=== PATIENT | female | born 1945 | race Caucasian/White ===

== ENCOUNTER 2016-12-07 08:52 | Emergency (ER) | payer OTHER ==
[2016-12-07 08:57] VITALS: BP 135/81; PULSE 70; TEMP 97.7; BMI 37.5
--- NOTE | 2016-12-07 09:36 | PDOC ---
History of Present Illness - General Chief Complaint: Ear Problem Stated Complaint: EAR PROBLEM Time Seen by Provider: 12/07/16 09:14 History Source: Patient Exam Limitations: No Limitations - History of Present Illness Initial Comments: 12/07/16 8:35 Emergency department for evaluation of left ear pain. has had that same pain in the past and was given some acetic acid drops from the pharmacist for ear pain. Patient has been using for one week with no recent relief of pain. has some mild buzzing, but denies drainage. Denies fever, runny nose or congestion. Denies trauma or any other ear injury. His dizziness, any visual changes, no swelling to face or ear. Patient has seen the ear nose and throat doctors Timing/Duration: unsure Severity: moderate, severe Modifying Factors: improves with: other Associated Symptoms: reports: denies symptoms. denies: cough, fever/chills, headaches, malaise Past History - Travel Traveled outside of the country in the last 30 days: No Close contact w/someone who was outside of country & ill: No - Past Medical History Allergies/Adverse Reactions: Allergies Allergy/AdvReac Type Severity Reaction Status Date / Time No Known Allergies Allergy Verified 12/07/16 08:58 Home Medications: Ambulatory Orders Aspirin [Machelle Chewable Aspirin] 81 mg PO DAILY 04/03/15 Atorvastatin Calcium 40 mg PO DAILY 04/03/15 Digoxin [Lanoxin -] 0.125 mg PO DAILY 04/03/15 Docusate Sodium 100 mg PO DAILY 04/03/15 Duloxetine HCl 60 mg PO DAILY 04/03/15 Gabapentin [Neurontin -] 300 mg PO Q8H 04/03/15 Ipratropium [place] [Atrovent Hfa] 12.9 gm IH QID PRN 04/03/15 Metoprolol Succinate [Toprol XL -] 200 mg PO DAILY 04/03/15 Sertraline HCl 50 mg PO DAILY 04/03/15 Torsemide 20 mg PO DAILY 04/03/15 Zolpidem Tartrate [Ambien] 5 mg PO HS PRN 04/03/15 Lisinopril [Prinivil] 5 mg PO DAILY #30 tablet 04/09/15 Magnesium Oxide [Mag-Ox -] 400 mg PO DAILY #30 tablet 04/09/15 Warfarin Na [Coumadin -] 5 mg PO DAILY@1800 #30 tablet 04/09/15 Anemia: No Asthma: No Cancer: No Cardiac Disorders: Yes (CAD; ATRIAL FIBRILLATION; dialted cardiomyopathy,) CVA: No COPD: No CHF: Yes Dementia: No Diabetes: No GI Disorders: Yes (HIATAL HERNIA) Disorders: No HTN: Yes Hypercholesterolemia: Yes Liver Disease: No Seizures: No Thyroid Disease: No - Surgical History Abdominal Surgery: Yes (HERNIA REPAIR) Appendectomy: No Cardiac Surgery: No (PACEMAKER) Cholecystectomy: No Lung Surgery: No Neurologic Surgery: No Orthopedic Surgery: Yes (Both ankle sx; right shoulder;vein stripping right, R. Knee 2013) - Psycho/Social/Smoking Cessation Hx Anxiety: No Suicidal Ideation: No Smoking Status: No Smoking History: Never smoked Have you smoked in the past 12 months: No Number of Cigarettes Smoked Daily: 0 Information on smoking cessation initiated: No Hx Alcohol Use: No Drug/Substance Use Hx: No Substance Use Type: None Hx Substance Use Treatment: No Review of Systems - Review of Systems Able to Perform ROS?: Yes Is the patient limited Hungarian proficient: Yes Constitutional: Yes: Symptoms Reported, See HPI, Malaise. No: Chills, Fever, Loss of Appetite HEENTM: Yes: Symptoms Reported, See HPI, Ear Pain (with buzzing. ) Respiratory: Yes: See HPI. No: Symptoms reported, Cough Neurological: Yes: See HPI. No: Symptoms reported, Headache All Other Systems: Reviewed and Negative *Physical Exam - Vital Signs Last Vital Signs Temp Pulse Resp BP Pulse Ox 97.7 F 70 18 135/81 98 12/07/16 08:53 12/07/16 08:53 12/07/16 08:53 12/07/16 08:53 12/07/16 08:53 - Physical Exam General Appearance: Yes: Nourished, Appropriately Dressed, Apparent Distress, Mild Distress HEENT: positive: J CARLOS, Pharynx Normal. negative: Normal ENT Inspection, TMs Normal (left very cloudy and unable to visualize landmarks, canal is not red, swollen, and without drainage) Neck: positive: Supple. negative: Lymphadenopathy (R), Lymphadenopathy (L) Respiratory/Chest: positive: Lungs Clear, Normal Breath Sounds Extremity: positive: Normal Capillary Refill Integumentary: positive: Normal Color, Dry, Warm Neurologic: positive: elevator service mechanic II-XII NML intact, Fully Oriented, Alert, Normal Mood/ Affect, Normal Response, Motor Strength 07/31 Medical Decision Making - Medical Decision Making 12/07/16 16:37 Left ear pain, discussed case with Dr. Thakur's office who stated patient has been there in the past. They are able to see patient this morning at 11 AM and will send for further evaluation *DC/Admit/Observation/Transfer Diagnosis at time of Disposition: Ear pain, left - Discharge Dispostion Disposition: HOME Condition at time of disposition: Stable Admit: No - Referrals Referrals: Hussein Lim [Primary Care Provider] - Julio Thakur MD [Staff Physician] - - Patient Instructions Printed Discharge Instructions: DI for Ear Pain-Adult Additional Instructions: Rest, [facility] Office for appointment at 11 AM
== END 2016-12-07 09:51 | disposition home or self-care (01) ==
LOC: JERFT 08:52
DX: H92.02 Otalgia, left ear (principal); I48.91 Unspecified atrial fibrillation; Z79.01 Long term (current) use of anticoagulants; I25.10 Atherosclerotic heart disease of native coronary artery without angina pectoris; I11.0 Hypertensive heart disease with heart failure; Z95.0 Presence of cardiac pacemaker
CPT/HCPCS: 99281-25

== ENCOUNTER 2018-10-05 13:33 | Inpatient (IN) | payer OTHER ==
--- NOTE | 2018-10-05 14:25 | PDOC ---
History of Present Illness - General Chief Complaint: Chest Pain Stated Complaint: SOB - History of Present Illness Initial Comments: The pt is a 73F w/ a history of CAD, s/p pacemaker, HTN, HLD, HF, syncope, 7 months of chest pain and ALDRICH presenting for acute on chronic chest pain and SOB. CP is substernal, sharp, non-radiating, pleuritic, non-positional, exertional, and alleviated by rest. She endorses 5 days of subjective fevers that she has not taken anything particular for. She denies sick contacts. She also reports 20 minutes of diffuse, cramping, abdominal pain that is intermittent, improved by standing and abd massage, and not associated with anything else she can identify. She also reports that she feels anxious today but cannot identify any particular stressors, change, or triggers today or this week. Per the family member, they were living in a basement but displaced several days ago and are now living in a hotel and he states that since that time she has been complaining of similar symptoms. Pt endorses long standing dysuria w/o previous 'negative w/u' She denies vision changes, diarrhea, blood in her stool, acute changes in sensation, leg swelling, falls, or trauma No changes in medications 10/05/18 14:53 Past History - Past Medical History Allergies/Adverse Reactions: Allergies Allergy/AdvReac Type Severity Reaction Status Date / Time No Known Allergies Allergy Verified 01/29/17 21:46 Home Medications: Ambulatory Orders Aspirin [Machelle Chewable Aspirin] 81 mg PO DAILY 04/03/15 Atorvastatin Calcium 40 mg PO DAILY 04/03/15 Digoxin [Lanoxin -] 0.125 mg PO DAILY 04/03/15 Docusate Sodium 100 mg PO DAILY 04/03/15 Duloxetine HCl 60 mg PO DAILY 04/03/15 Gabapentin [Neurontin -] 300 mg PO Q8H 04/03/15 Ipratropium [place] [Atrovent Hfa] 12.9 gm IH QID PRN 04/03/15 Metoprolol Succinate [Toprol XL -] 200 mg PO DAILY 04/03/15 Sertraline HCl 50 mg PO DAILY 04/03/15 Torsemide 20 mg PO DAILY 04/03/15 Zolpidem Tartrate [Ambien] 5 mg PO HS PRN 04/03/15 Lisinopril [Prinivil] 5 mg PO DAILY #30 tablet 04/09/15 Magnesium Oxide [Mag-Ox -] 400 mg PO DAILY #30 tablet 04/09/15 Warfarin Na [Coumadin -] 5 mg PO DAILY@1800 #30 tablet 04/09/15 Anemia: No Asthma: No Cancer: No Cardiac Disorders: Yes (CAD; ATRIAL FIBRILLATION; dialted cardiomyopathy,) CVA: No COPD: No CHF: Yes Dementia: No Diabetes: No GI Disorders: Yes (HIATAL HERNIA) Disorders: No HTN: Yes Hypercholesterolemia: Yes Liver Disease: No Seizures: No Thyroid Disease: No - Surgical History Abdominal Surgery: Yes (HERNIA REPAIR) Appendectomy: No Cardiac Surgery: No (PACEMAKER) Cholecystectomy: No Lung Surgery: No Neurologic Surgery: No Orthopedic Surgery: Yes (Both ankle sx; right shoulder;vein stripping right, R. Knee 2013) - Suicide/Smoking/Psychosocial Hx Smoking Status: No Smoking History: Unknown if ever smoked Have you smoked in the past 12 months: No Number of Cigarettes Smoked Daily: 0 Hx Alcohol Use: No Drug/Substance Use Hx: No Substance Use Type: None Hx Substance Use Treatment: No Review of Systems - Review of Systems Able to Perform ROS?: Yes Comments:: GENERAL/CONSTITUTIONAL: No chills HEAD, EYES, EARS, NOSE AND THROAT: No change in vision. No ear pain or discharge. No sore throat CARDIOVASCULAR: +CP and SOB RESPIRATORY: Denies cough, hemoptysis GASTROINTESTINAL: No diarrhea or constipation GENITOURINARY: +chronic dysuria MUSCULOSKELETAL: +chronic OA SKIN: No rash NEUROLOGIC: No vertigo, loss of consciousness, or change in strength/sensation ENDOCRINE: No increased thirst. No abnormal weight change ALLERGIC/IMMUNOLOGIC: No hives or skin allergy 10/05/18 14:25 *Physical Exam - Vital Signs Last Vital Signs Temp Pulse Resp BP Pulse Ox 97.7 F 70 24 H 125/84 100 10/05/18 14:07 10/05/18 14:07 10/05/18 14:10/05/18 14:10/05/18 14:07 - Physical Exam Comments: GENERAL: Awake, alert, and oriented to person/place/time, in no acute distress HEAD: No signs of trauma, normocephalic, atraumatic EYES: PERRLA, EOMI, sclera anicteric, conjunctiva clear ENT: Hearing grossly normal, nares patent, oropharynx clear without exudates. Moist mucosa LUNGS: No distress, speaks in full sentences, clear to auscultation bilaterally HEART: Regular rate and rhythm, normal S1 and S2, no murmurs appreciated, peripheral pulses normal and equal bilaterally ABDOMEN: Soft, protuberant, NTTP, normoactive bowel sounds. No guarding, no rebound EXTREMITIES: Normal inspection, Normal range of motion, no edema. No clubbing or cyanosis NEUROLOGICAL: Cranial nerves II through XII grossly intact. Normal speech, no focal sensorimotor deficits SKIN: Warm, Dry 10/05/18 14:25 ED Treatment Course - LABORATORY CBC & Chemistry Diagram: 10/05/18 15:06 10/05/18 15:06 Medical Decision Making - Medical Decision Making The pt is a 73F w/ a history of CAD, s/p pacemaker, HTN, HLD, HF, syncope, 7 months of chest pain and ALDRICH presenting for acute on chronic chest pain and SOB. Additionally she reports dysuria and frequency. Ddx: ACS, acute on CHF, UTI, metabolic abn ED Course Labs sent ECG CXR ECG w/ ventricular paced rhythm w/ no acute change from previous No leukocytosis No anemia Lytes unremarkable No HARDEEP LFTs unremarkable Trop I neg BNP mildly elevated 1478 -Will give Lasix 40mg IV once UA w/ evidence of UTI -Will give Ceftriaxone 1g IV once Plan for Tele obs for chest pain Pt signed out to [facility] Admitting *DC/Admit/Observation/Transfer Diagnosis at time of Disposition: ACS (acute coronary syndrome), Chronic systolic (congestive) heart failure Chest pain Qualifiers: Chest pain type: unspecified Qualified Code(s): R07.9 - Chest pain, unspecified HTN (hypertension) Qualifiers: Hypertension type: unspecified Qualified Code(s): I10 - Essential (primary) hypertension CAD (coronary artery disease) Qualifiers: Coronary Disease-Associated Artery/Lesion type: unspecified vessel or lesion type [place] vs. transplanted heart: [place] heart Associated angina: angina presence unspecified Qualified Code(s): I25.10 - Atherosclerotic heart disease of [place] coronary artery without angina pectoris - Discharge Dispostion Condition at time of disposition: Good Decision to Admit order: Yes - Referrals - Patient Instructions - Post Discharge Activity
--- NOTE | 2018-10-05 14:50 | EKG ---
Test Reason : Blood Pressure : / mmHG Vent. Rate : 071 BPM Atrial Rate : 073 BPM P-R Int : 000 ms QRS Dur : 134 ms QT Int : 466 ms P-R-T Axes : 000 233 052 degrees QTc Int : 506 ms Ventricular-paced rhythm Biventricular pacemaker detected ABNORMAL ECG WHEN COMPARED WITH ECG OF 03-APR-2015 12:07, NO SIGNIFICANT CHANGE WAS FOUND Confirmed by SATR COYNE MD ([id number]) on 10/05/2018 2:49:40 PM Referred By: Confirmed By:STAR COYNE MD
[2018-10-05 15:28] LABS: BASO % 0.7 % (0-2.0); EOS % 0.7 % (0-4.5); HEMATOCRIT 35.1 % (32.4-45.2); HEMOGLOBIN 11.5 GM/dL (10.7-15.3); LYMPH % 19.8 % (8-40); MCH 28.6 pg (25.7-33.7); MCHC 32.9 g/dl (32.0-36.0); MEAN CELL VOLUME 87.1 fl (80-96); MEAN PLT VOLUME 7.2 fl (7.5-11.1); MONO % 4.8 % (3.8-10.2); RBC 4.03 M/mm3 (3.60-5.2); RDW 13.7 % (11.6-15.6); WHITE BLOOD COUNT 9.3 K/mm3 (4.0-10.0)
[2018-10-05 15:41] LABS: INR 1.39 (0.83-1.09); PROTHROMBIN TIME (PATIENT) 16.5 SEC (9.7-13.0)
[2018-10-05 15:43] LABS: ACTIVATED PTT 35.5 SECONDS (25.2-36.5); PLATELET COUNT 407 K/MM3 (134-434)
[2018-10-05 15:54] LABS: ALBUMIN 3.3 g/dl (3.4-5.0); ALK PHOS 131 U/L (45-117); ANION GAP 9 MMOL/L (8-16); BILIRUBIN,TOTAL 0.4 mg/dL (0.2-1); BLOOD UREA NITROGEN 12.7 mg/dL (7-18); CHLORIDE 111 mmol/L (98-107); CO2 26 mmol/L (21-32); CREATININE 0.9 mg/dL (0.55-1.3); GLUCOSE,RANDOM 88 mg/dL (74-106); N-TERMINAL BNP 1478.6 pg/ml (5-450); POTASSIUM 3.7 mmol/L (3.5-5.1); SGOT/AST 21 U/L (15-37); SGPT/ALT 29 U/L (13-61); SODIUM 146 mmol/L (136-145); TOT PROT 6.9 g/dl (6.4-8.2)
--- NOTE | 2018-10-05 17:33 | PDOC ---
Documentation entered by Milton Burrell SCRIBE, acting as scribe for Williams Sal MD. Williams Sal MD: This documentation has been prepared by the Indra jim Elijah, SCRIBE, under my direction and personally reviewed by me in its entirety. I confirm that the documentation accurately reflects all work, treatment, procedures, and medical decision making performed by me. Attending Attestation - Resident Resident Name: Hema Costa - ED Attending Attestation I have performed the following: I have examined & evaluated the patient, The case was reviewed & discussed with the resident, I agree w/resident's findings & plan, Exceptions are as noted - HPI HPI: 10/05/18 15:18 Patient is a 73 year old female with a significant past medical history of CAD s /p pacemaker, HTN and HLD, who presents to the ED with Chest Pain intermittent for 7 months, worsening over the past few days. Patient also reports associated SOB, as well as 5 days of subjective fever. Denies leg swelling, trauma, changes in vision, and diarrhea Allergies: NKA - Physicial Exam PE: 10/05/18 15:18 GENERAL: Awake, alert, and fully oriented, in no acute distress. HEAD: No signs of trauma EYES: PERRLA, EOMI, sclera anicteric, conjunctiva clear ENT: Auricles normal inspection, hearing grossly normal, nares patent, oropharynx clear without exudates. Moist mucosa NECK: Nontender, no stepoffs, Normal ROM, supple, no lymphadenopathy, JVD, or masses LUNGS: Breath sounds equal, clear to auscultation bilaterally. No wheezes, and no crackles HEART: Regular rate and rhythm, normal S1 and S2, no murmurs, rubs or gallops ABDOMEN: Soft, nontender, normoactive bowel sounds. No guarding, no rebound. No masses EXTREMITIES: Normal range of motion, no edema. No clubbing or cyanosis. No cords, erythema, or tenderness NEUROLOGICAL: Cranial nerves II through XII intact. 5/5 strength and sensation in all extremities, Normal speech, normal gait, normal cerebellar function SKIN: Warm, Dry, normal turgor, no rashes or lesions noted. - Medical Decision Making 10/05/18 17:35 73 F with chest pain, SOB, and subjective fevers. Pt has h/o CAD. EKG without ischemic changes. - Labs, trop - CXR 10/05/18 17:36 CXR show mild congestion Will give gentle diuresis
[2018-10-05] MEDS ORDERED: FUROSEMIDE 40 MG/4 ML INJECTABLE VIAL IVPB ONE (17:37)
[2018-10-05 17:41] LABS: EPI CELLS 0.8 /HPF (0-5/HPF); HYALINE CASTS 49 /lpf (0-8); PH,URINE 7.5 (5.0-8.0); URINE APPEARANCE CLOUDY; URINE BILIRUBIN NEGATIVE (NEGATIVE); URINE COLOR YELLOW; URINE GLUCOSE (UA) NEGATIVE (NEGATIVE); URINE KETONE NEGATIVE (NEGATIVE); URINE LEUK ESTERASE 2+ (NEGATIVE); URINE NITRITE POSITIVE (NEGATIVE); URINE PROTEIN TRACE (NEGATIVE); URINE RBC 5 /hpf (0-4); URINE UROBILINOGEN 0.2 mg/dL (0.2-1.0); URINE WBC 169 /hpf (0-5)
[2018-10-05] MEDS ORDERED: FUROSEMIDE 40 MG/4 ML INJECTABLE VIAL ONE (17:50)
[2018-10-05] MEDS ORDERED: CEFTRIAXONE 1,000 MG in DEXTROSE 5%-WATER - 50 ML IVPB ONE (18:00)
[2018-10-05] MEDS ORDERED: CEFTRIAXONE 1 GM/50 ML BAG ONE (18:08)
--- NOTE | 2018-10-05 21:32 | PN ---
Teaching Attending Note Name of Resident: Zuri Burton ATTENDING PHYSICIAN STATEMENT I saw and evaluated the patient. Chart, data, imaging reviewed. I reviewed the resident's note and discussed the case with the resident. I agree with the resident's findings and plan as documented. SUBJECTIVE: 73F w/ a history of CAD, Systolic dysfucntion CHF, s/p pacemaker, HTN, HLD, obesity c/o substernal chest pain worse with exertion for the past 7 months. Now , this morning, chest pain has worsened. Pain was 8/10 at its worst, now improved. Orthopnea+, decreased exercise tolerance. OBJECTIVE: Last Vital Signs Temp Pulse Resp BP Pulse Ox 97.7 F 70 24 H 125/84 100 10/05/18 14:07 10/05/18 14:07 10/05/18 14:07 10/05/18 14:07 10/05/18 14:07 General- nad,aoox3 heent- atraumatic, nc neck supple cv-s1+s2+rrr chest- clear abdomen - soft, nt, ext- pedal edema2+ Abnormal Lab Results 10/05/18 10/05/18 10/05/18 15:06 15:06 15:06 MPV 7.2 L D PT with INR 16.50 H INR 1.39 H Sodium 146 H Chloride 111 H Alkaline Phosphatase 131 H B-Natriuretic Peptide 1478.6 H Albumin 3.3 L Urine Nitrite Ur Leukocyte Esterase 10/05/18 16:00 MPV PT with INR INR Sodium Chloride Alkaline Phosphatase B-Natriuretic Peptide Albumin Urine Nitrite Positive H Ur Leukocyte Esterase 2+ H EKG, imaging reviewed cxr reviewed ASSESSMENT AND PLAN: #73yo woman with CAD, dilated cardiomyopathy, afib, CHF c/o anginal type chest pain for 7 months with worsening this morning. Should r/o ACS given high risk nature of pain. Likely CHF exacerbation given worsened orthopnea, +BNP,chest pain, pedal edema. -admit to telemetry -trend troponins -baker catheter -i/o -daily weights -fluid restriction -salt restriction -furosemide 40mg IV bid -bblocker -ACEi -echo -NGL sublingual if chest pain -cardiology consult - also pacemaker, cardiac device interrogation -likely cardiac stress test vs medical laboratory technologist -oxygen supplement #Afib - ventricular paced on ekg, rate controlled -c/w toprolol home -xarelto for AC #DVT -xarelto
[2018-10-05] MEDS ORDERED: RANITIDINE HCL 150 MG TABLET (FP) ONE (22:05)
--- NOTE | 2018-10-05 22:08 | HP ---
CHIEF COMPLAINT: chest pain PCP: Dr. Lim HISTORY OF PRESENT ILLNESS: Ms. Del Rosario is a 73yo female with systolic CHF, CAD, HTN, a-fib, pacemaker, and HTN who presents with chest pain x 3 days. She is unable to describe the pain but it is in the epigastric area and can be 8/10 pain. She is experiencing increased SOB and ALDRICH recently as well. She is able to walk half a block before becoming winded. She also has recent orthopnea, sleeping with 2 pillows instead of 1 now. She denies wheezing. She also reports sore throat, throat swelling, left ear pain/hearing loss. She moved to a new home 7 months ago and attributes new and worsening symptoms to insects and [facility]. She denies n/v/d. Field Inspector used during interview. ER course was notable for: (1) lasix PAST MEDICAL HISTORY: 1. systolic CHF (echo 2016 EF 44%) 2. CAD 3. HTN 4. a-fib 5. HTN PAST SURGICAL HISTORY: 1. pacemaker placement 2013 2. hernia 3. ankle 4. knee 5. shoulder Social History: Smoking: denies Alcohol: denies Drugs: denies Family History: unknown Allergies No Known Allergies Allergy (Verified 01/29/17 21:46) HOME MEDICATIONS: Home Medications Medication Instructions Recorded Aspirin [Machelle Chewable Aspirin] 81 mg PO DAILY 04/03/15 Atorvastatin Calcium 40 mg PO DAILY 04/03/15 Digoxin [Lanoxin -] 0.125 mg PO DAILY 04/03/15 Docusate Sodium 100 mg PO DAILY 04/03/15 Duloxetine HCl 60 mg PO DAILY 04/03/15 Gabapentin [Neurontin -] 300 mg PO Q8H 04/03/15 Ipratropium [place] [Atrovent Hfa] 12.9 gm IH QID PRN 04/03/15 Metoprolol Succinate [Toprol XL -] 200 mg PO DAILY 04/03/15 Sertraline HCl 50 mg PO DAILY 04/03/15 Torsemide 20 mg PO DAILY 04/03/15 Zolpidem Tartrate [Ambien] 5 mg PO HS PRN 04/03/15 Lisinopril [Prinivil] 5 mg PO DAILY #30 tablet 04/09/15 Magnesium Oxide [Mag-Ox -] 400 mg PO DAILY #30 tablet 04/09/15 Warfarin Na [Coumadin -] 5 mg PO DAILY@1800 #30 tablet 04/09/15 REVIEW OF SYSTEMS CONSTITUTIONAL: Absent: fever, chills, diaphoresis, generalized weakness, malaise, loss of appetite, weight change HEENT: Present: rhinorrhea, nasal congestion, throat pain, throat swelling, difficulty swallowing, ear pain, hearing loss Absent: mouth swelling, eye pain, visual changes CARDIOVASCULAR: Present: chest pain, peripheral edema Absent: syncope, palpitations, irregular heart rate, lightheadedness RESPIRATORY: Present: SOB, ALDRICH, orthopnea Absent: cough, wheezing, stridor, hemoptysis GASTROINTESTINAL: Absent: abdominal pain, abdominal distension, nausea, vomiting, diarrhea, constipation, melena, hematochezia GENITOURINARY: Absent: dysuria, frequency, hematuria MUSCULOSKELETAL: Reports: arthralgias Absent: joint swelling, back pain, neck pain SKIN: Absent: rash, itching, pallor HEMATOLOGIC/IMMUNOLOGIC: Absent: easy bleeding, easy bruising, lymphadenopathy, frequent infections ENDOCRINE: Absent: unexplained weight gain, unexplained weight loss, heat intolerance, cold intolerance NEUROLOGIC: Present: headache Absent: focal weakness or paresthesias, dizziness, unsteady gait, seizure, mental status changes, bladder or bowel incontinence PSYCHIATRIC: Absent: anxiety, depression, suicidal or homicidal ideation, hallucinations. PHYSICAL EXAMINATION Vital Signs - 24 hr 10/05/18 14:07 Temperature 97.7 F Pulse Rate 70 Respiratory 24 H Rate Blood Pressure 125/84 O2 Sat by Pulse 100 Oximetry (%) GENERAL: Awake, alert, and fully oriented, in no acute distress. HEAD: Normal with no signs of trauma. EYES: Pupils equal, round and reactive to light, extraocular movements intact, sclera anicteric, conjunctiva clear. No lid lag. EARS, NOSE, THROAT: Ears normal, nares patent. Moist mucous membranes. NECK: Normal range of motion, supple without lymphadenopathy, JVD, or masses. LUNGS: Breath sounds equal, clear to auscultation bilaterally. No wheezes, and no crackles. No accessory muscle use. HEART: Regular rate and rhythm, normal S1 and S2 without murmur, rub or gallop. ABDOMEN: Soft, generalized tenderness, not distended, normoactive bowel sounds, no guarding, no rebound, no masses. No hepatomegaly or splenomegaly. MUSCULOSKELETAL: Normal range of motion at all joints. No bony deformities or tenderness. No CVA tenderness. UPPER EXTREMITIES: warm, well-perfused. No cyanosis. No clubbing. Minimal edema bilaterally in hands LOWER EXTREMITIES: 2+ pulses, warm, well-perfused. Minimal edema bilaterally in feet to just above the ankles NEUROLOGICAL: Cranial nerves II-XII intact. Normal speech. Normal gait. PSYCHIATRIC: Cooperative. Good eye contact. Appropriate mood and affect. SKIN: Warm, dry, normal turgor, no rashes or lesions noted, normal capillary refill. Laboratory Results - last 24 hr 10/05/18 10/05/18 10/05/18 15:06 15:06 15:06 WBC 9.3 RBC 4.03 Hgb 11.5 Hct 35.1 MCV 87.1 MCH 28.6 MCHC 32.9 RDW 13.7 Plt Count 407 D MPV 7.2 L D Absolute Neuts (auto) 6.9 Neutrophils % 74.0 Lymphocytes % 19.8 Monocytes % 4.8 Eosinophils % 0.7 Basophils % 0.7 Nucleated RBC % 0 PT with INR 16.50 H INR 1.39 H PTT (Actin FS) 35.5 Sodium 146 H Potassium 3.7 Chloride 111 H Carbon Dioxide 26 Anion Gap 9 BUN 12.7 Creatinine 0.9 Est GFR (CKD-EPI)AfAm 72.49 Est GFR (CKD-EPI)NonAf 62.55 Random Glucose 88 Calcium 9.0 Total Bilirubin 0.4 AST 21 ALT 29 Alkaline Phosphatase 131 H Troponin I < 0.02 B-Natriuretic Peptide 1478.6 H Total Protein 6.9 Albumin 3.3 L Urine Color Urine Appearance Urine pH Ur Specific [place] Urine Protein Urine Glucose (UA) Urine Ketones Urine Blood Urine Nitrite Urine Bilirubin Urine Urobilinogen Ur Leukocyte Esterase Urine WBC (Auto) Urine RBC (Auto) Urine Casts (Auto) U Epithel Cells (Auto) Urine Bacteria (Auto) 10/05/18 16:00 WBC RBC Hgb Hct MCV MCH MCHC RDW Plt Count MPV Absolute Neuts (auto) Neutrophils % Lymphocytes % Monocytes % Eosinophils % Basophils % Nucleated RBC % PT with INR INR PTT (Actin FS) Sodium Potassium Chloride Carbon Dioxide Anion Gap BUN Creatinine Est GFR (CKD-EPI)AfAm Est GFR (CKD-EPI)NonAf Random Glucose Calcium Total Bilirubin AST ALT Alkaline Phosphatase Troponin I B-Natriuretic Peptide Total Protein Albumin Urine Color Yellow Urine Appearance Cloudy Urine pH 7.5 D Ur Specific [place] 1.016 Urine Protein Trace Urine Glucose (UA) Negative Urine Ketones Negative Urine Blood Negative Urine Nitrite Positive H Urine Bilirubin Negative Urine Urobilinogen 0.2 Ur Leukocyte Esterase 2+ H Urine WBC (Auto) 169 Urine RBC (Auto) 5 Urine Casts (Auto) 49 U Epithel Cells (Auto) 0.8 Urine Bacteria (Auto) 7747.0 ASSESSMENT/PLAN: The patient is a 73 yo female with systolic CHF s/p biventricular pacemaker, CAD , HTN, HLD, who presents with chest pain for 3 days. -acute on chronic chf increased SOB and ALDRICH congestion on CXR lasix 40 bid to decrease volume status CBC CMP Mg P -continue Xarelto call PCP in morning to confirm other meds cards consult echo -r/o acs ekg trop repeat nitro -cystitis ceftriaxone urine culture pending FEN No fluids other than meds continue to monitor electrolytes -med list as given by pt Xarelto 20mg Q evening Tamsulosin 0.4mg QHS Tramadol 50mg Q4-6 hours pain Will confirm with PCP in the morning Visit type - Emergency Visit Emergency Visit: Yes ED Registration Date: 10/05/18 Care time: The patient presented to the Emergency Department on the above date and was hospitalized for further evaluation of their emergent condition. - New Patient This patient is new to me today: Yes Date on this admission: 10/06/18 - Critical Care Critical Care patient: No ATTENDING PHYSICIAN STATEMENT I saw and evaluated the patient. I reviewed the resident's note and discussed the case with the resident. I agree with the resident's findings and plan as documented. SUBJECTIVE: OBJECTIVE: ASSESSMENT AND PLAN:
[2018-10-05] MEDS: RANITIDINE HCL 150 MG TABLET (FP) PO SCH (22:49)
[2018-10-06 02:52] VITALS: BMI 33.2
[2018-10-06] MEDS: FUROSEMIDE 40 MG/4 ML INJECTABLE VIAL IVPUSH SCH ×2 (05:54→14:33)
--- NOTE | 2018-10-06 07:25 | PN ---
Physical Exam: SUBJECTIVE: Patient seen and examined. No chest pain, no Shortness of breath, getting ECHO done OBJECTIVE: Vital Signs Period Temp Pulse Resp BP Sys/[place] Pulse Ox Last 24 Hr 97.7 F-98.7 F 10- 16-24 104-139/47-84 97-100 GENERAL: The patient is awake, alert, and fully oriented, in no acute distress. LUNGS: Breath sounds equal, clear to auscultation bilaterally, no wheezes, no crackles HEART: S1, S2 ABDOMEN: Soft, nontender, obese EXTREMITIES: 2+ pulses, warm, well-perfused, no edema. NEUROLOGICAL: Cranial nerves II through XII grossly intact. No lateralizing signs. Muscle strength 5/5. Normal speech, gait not observed. Laboratory Results - last 24 hr 10/05/18 10/05/18 10/05/18 15:06 15:06 15:06 WBC 9.3 RBC 4.03 Hgb 11.5 Hct 35.1 MCV 87.1 MCH 28.6 MCHC 32.9 RDW 13.7 Plt Count 407 D MPV 7.2 L D Absolute Neuts (auto) 6.9 Neutrophils % 74.0 Lymphocytes % 19.8 Monocytes % 4.8 Eosinophils % 0.7 Basophils % 0.7 Nucleated RBC % 0 PT with INR 16.50 H INR 1.39 H PTT (Actin FS) 35.5 Sodium 146 H Potassium 3.7 Chloride 111 H Carbon Dioxide 26 Anion Gap 9 BUN 12.7 Creatinine 0.9 Est GFR (CKD-EPI)AfAm 72.49 Est GFR (CKD-EPI)NonAf 62.55 Random Glucose 88 Calcium 9.0 Total Bilirubin 0.4 AST 21 ALT 29 Alkaline Phosphatase 131 H Troponin I < 0.02 B-Natriuretic Peptide 1478.6 H Total Protein 6.9 Albumin 3.3 L Urine Color Urine Appearance Urine pH Ur Specific [place] Urine Protein Urine Glucose (UA) Urine Ketones Urine Blood Urine Nitrite Urine Bilirubin Urine Urobilinogen Ur Leukocyte Esterase Urine WBC (Auto) Urine RBC (Auto) Urine Casts (Auto) U Epithel Cells (Auto) Urine Bacteria (Auto) 10/05/18 10/06/18 16:00 01:00 WBC RBC Hgb Hct MCV MCH MCHC RDW Plt Count MPV Absolute Neuts (auto) Neutrophils % Lymphocytes % Monocytes % Eosinophils % Basophils % Nucleated RBC % PT with INR INR PTT (Actin FS) Sodium Potassium Chloride Carbon Dioxide Anion Gap BUN Creatinine Est GFR (CKD-EPI)AfAm Est GFR (CKD-EPI)NonAf Random Glucose Calcium Total Bilirubin AST ALT Alkaline Phosphatase Troponin I < 0.02 B-Natriuretic Peptide Total Protein Albumin Urine Color Yellow Urine Appearance Cloudy Urine pH 7.5 D Ur Specific [place] 1.016 Urine Protein Trace Urine Glucose (UA) Negative Urine Ketones Negative Urine Blood Negative Urine Nitrite Positive H Urine Bilirubin Negative Urine Urobilinogen 0.2 Ur Leukocyte Esterase 2+ H Urine WBC (Auto) 169 Urine RBC (Auto) 5 Urine Casts (Auto) 49 U Epithel Cells (Auto) 0.8 Urine Bacteria (Auto) 7747.0 Active Medications Generic Name Dose Route Start Last Admin Trade Name Freq PRN Reason Stop Dose Admin Aspirin 81 mg 10/06/18 10:00 Asa - PO DAILY [facility] Atorvastatin Calcium 40 mg 10/06/18 22:00 Lipitor - PO HS [facility] Furosemide 40 mg 10/06/18 06:00 10/06/18 05:54 Lasix Injection - IVPUSH 40 mg BID@0600,1400 [facility] Administration Ceftriaxone Sodium 1 gm/ 50 mls @ 100 mls/hr 10/06/18 10:00 Dextrose IVPB 10/09/18 23:59 DAILY [facility] Protocol Lisinopril 5 mg 10/06/18 10:00 Prinivil PO DAILY [facility] Metoprolol Succinate 200 mg 10/06/18 10:00 Toprol Xl - PO DAILY [facility] Ranitidine HCl 150 mg 10/05/18 22:00 10/05/18 22:49 Zantac - PO 150 mg BID [facility] Administration Rivaroxaban 20 mg 10/06/18 18:00 Xarelto PO DAILY@1800 [facility] Ambulatory Orders Aspirin [Machelle Chewable Aspirin] 81 mg PO DAILY 04/03/15 Atorvastatin Calcium 40 mg PO DAILY 04/03/15 Digoxin [Lanoxin -] 0.125 mg PO DAILY 04/03/15 Docusate Sodium 100 mg PO DAILY 04/03/15 Duloxetine HCl 60 mg PO DAILY 04/03/15 Gabapentin [Neurontin -] 300 mg PO Q8H 04/03/15 Ipratropium [place] [Atrovent Hfa] 12.9 gm IH QID PRN 04/03/15 Metoprolol Succinate [Toprol XL -] 200 mg PO DAILY 04/03/15 Sertraline HCl 50 mg PO DAILY 04/03/15 Torsemide 20 mg PO DAILY 04/03/15 Zolpidem Tartrate [Ambien] 5 mg PO HS PRN 04/03/15 Lisinopril [Prinivil] 5 mg PO DAILY #30 tablet 04/09/15 Magnesium Oxide [Mag-Ox -] 400 mg PO DAILY #30 tablet 04/09/15 Warfarin Na [Coumadin -] 5 mg PO DAILY@1800 #30 tablet 04/09/15 Current Medications Aspirin (Asa -) 81 mg PO DAILY [facility] Atorvastatin Calcium (Lipitor -) 40 mg PO HS [facility] Furosemide (Lasix Injection -) 40 mg IVPUSH BID@0600,1400 [facility] Last Admin: 10/06/18 05:54 Dose: 40 mg Ceftriaxone Sodium 1 gm/ (Dextrose) 50 mls @ 100 mls/hr IVPB DAILY [facility]; Protocol Stop: 10/09/18 23:59 Lisinopril (Prinivil) 5 mg PO DAILY [facility] Metoprolol Succinate (Toprol Xl -) 200 mg PO DAILY [facility] Ranitidine HCl (Zantac -) 150 mg PO BID [facility] Last Admin: 10/05/18 22:49 Dose: 150 mg Rivaroxaban (Xarelto) 20 mg PO DAILY@1800 [facility] ECHO 03/2015: LV mildly dilated, LVSF mod reduced. Mod. global hypokinesis of LV. Apical wall motion abnl., may reflect pacemaker activation. Pacemaker lead in RV. RV not well visualized. LA?RA mod dilated Mild MR/TR. Normal RVSP. ECHO 10/06/18:EF 55-60%, nl LV size, thickness and function. RV-size, and function. Pacemaker lead in RV and LA. LA moderately dilated. Trace TR ASSESSMENT/PLAN: 73yo female with systolic CHF, CAD, HTN, a-fib, pacemaker, and HTN who presents with chest pain x 3 days found to have UTI admitted to R/O ACS #HFrEF s/p biventricular pacemaker On torsemide 20mg daily On lasix 40mg iv bid ECHO pending possible mild congestion on CXR BNP elevated 1478.6- no priors Strict ins and outs Daily water Water restriction Low salt diet Cont toprol 200, TERRI-lisinopril 5 Card consult- Dr Bustamante Afib [id number] (stroke risk-7.2% per year) On xarelto 20mg HS On toprol 200 On digoxin- dig level Retrosternal Chest pain R/o Atypical chest pain Chest pain resolved in ED trops neg x2 May benefit from stress test zantac-150mg bid UTI Nitrite positive Prior UCx 04/03/15- E coli pansensitive except to ampicillin and amp/sulb Cont ceftriaxone #CAD Apical wall motion abnl on ECHO Cont metoprolol, lipitor, lisinopril, pending medrec #HTN metoprolol xl-200, lisinopril -5 #HLD, lipitor--40 Anxiety/ Cont meds- need to recouncile Possible Urinary obstruction Tamsulosin 0.4mg QHS Chronic pain Tramadol 50mg Q4-6 hours pain Tele Visit type - Emergency Visit Emergency Visit: Yes ED Registration Date: 10/05/18 Care time: The patient presented to the Emergency Department on the above date and was hospitalized for further evaluation of their emergent condition. - New Patient This patient is new to me today: Yes Date on this admission: 10/06/18 - Critical Care Critical Care patient: No - Discharge Referral Referred to [facility] Med P.C.: No ATTENDING PHYSICIAN STATEMENT I saw and evaluated the patient. I reviewed the resident's note and discussed the case with the resident. I agree with the resident's findings and plan as documented. SUBJECTIVE: OBJECTIVE: ASSESSMENT AND PLAN:
[2018-10-06 07:43] LABS: BASO % 0.4 % (0-2.0); EOS % 1.2 % (0-4.5); HEMATOCRIT 35.1 % (32.4-45.2); HEMOGLOBIN 11.7 GM/dL (10.7-15.3); LYMPH % 18.1 % (8-40); MCHC 33.4 g/dl (32.0-36.0); MEAN PLT VOLUME 7.2 fl (7.5-11.1); MONO % 5.9 % (3.8-10.2); NEUT % 74.4 % (42.8-82.8); PLATELET COUNT 394 K/MM3 (134-434); RBC 4.04 M/mm3 (3.60-5.2); RDW 14.1 % (11.6-15.6); WHITE BLOOD COUNT 8.9 K/mm3 (4.0-10.0)
[2018-10-06 07:52] LABS: ALBUMIN 3.2 g/dl (3.4-5.0); BILIRUBIN,TOTAL 0.3 mg/dL (0.2-1); BLOOD UREA NITROGEN 12.4 mg/dL (7-18); CALCIUM 8.7 mg/dL (8.5-10.1); MAGNESIUM 2.3 mg/dL (1.8-2.4); PHOSPHOROUS 4.9 mg/dL (2.5-4.9); POTASSIUM 4.3 mmol/L (3.5-5.1); TOT PROT 6.8 g/dl (6.4-8.2)
--- NOTE | 2018-10-06 08:11 | CON.CARD ---
Consult Consult Specialty:: Cardiology Reason for Consultation:: sob/epigastric cp - History of Present Illness History of Present Illness: Ms. Del Rosario is a 73yo female with systolic CHF, CAD, HTN, a-fib, pacemaker, and HTN who presents with chest pain x 3 days. She is unable to describe the pain but it is in the epigastric area and can be 8/10 pain. She is experiencing increased SOB and ALDRICH recently as well. She is able to walk half a block before becoming winded. She also has recent orthopnea, sleeping with 2 pillows instead of 1 now. She denies wheezing. She also reports sore throat, throat swelling, left ear pain/hearing loss. She moved to a new home 7 months ago and attributes new and worsening symptoms to insects and pesticide used by [employer]. She denies n/v/d. PMH PM history cardiomyopathy--> single chamber ICD placement ([employer]) placed 03/21/2015 at [facility]; HTN; Hyperlipidemia; - History Source History Provided By: Patient, Medical Record - Past Medical History Cardio/Vascular: Yes: AFIB, CHF, HTN, Hyperlipdemia Gastrointestinal: Yes: Ascites, Cancer, Constipation, Crohn's Disease, Diverticulitis, Diverticulosis, Esophageal Varices, Gastritis, GERD, GI Bleed, Hemorrhoids, Hiatal Hernia, Inflamatory Bowel Disease, Irritable Bowel Disease, Pancreatitis, Peptic Ulcer Disease, Ulcerative Colitis, Other Musculoskeletal: Yes: Osteoarthritis - Past Surgical History Past Surgical History: Yes: Hernia Repair, Joint Replacement - Alcohol/Substance Use Hx Alcohol Use: No History of Substance Use: reports: None - Smoking History Smoking history: Never smoked Have you smoked in the past 12 months: No Aproximately how many cigarettes per day: 0 - Social History ADL: Family Assistance History of Recent Travel: No Home Medications - Allergies Allergies/Adverse Reactions: Allergies Allergy/AdvReac Type Severity Reaction Status Date / Time No Known Allergies Allergy Verified 01/29/17 21:46 - Home Medications Home Medications: Ambulatory Orders Aspirin [Machelle Chewable Aspirin] 81 mg PO DAILY 04/03/15 Atorvastatin Calcium 40 mg PO DAILY 04/03/15 Digoxin [Lanoxin -] 0.125 mg PO DAILY 04/03/15 Docusate Sodium 100 mg PO DAILY 04/03/15 Duloxetine HCl 60 mg PO DAILY 04/03/15 Gabapentin [Neurontin -] 300 mg PO Q8H 04/03/15 Ipratropium [place] [Atrovent Hfa] 12.9 gm IH QID PRN 04/03/15 Metoprolol Succinate [Toprol XL -] 200 mg PO DAILY 04/03/15 Sertraline HCl 50 mg PO DAILY 04/03/15 Torsemide 20 mg PO DAILY 04/03/15 Zolpidem Tartrate [Ambien] 5 mg PO HS PRN 04/03/15 Lisinopril [Prinivil] 5 mg PO DAILY #30 tablet 04/09/15 Magnesium Oxide [Mag-Ox -] 400 mg PO DAILY #30 tablet 04/09/15 Warfarin Na [Coumadin -] 5 mg PO DAILY@1800 #30 tablet 04/09/15 Family Disease History - Family Disease History Family Disease History: CA: Mother (breast) Review of Systems - Review of Systems Constitutional: reports: No Symptoms Eyes: reports: No Symptoms HENT: reports: No Symptoms Neck: reports: No Symptoms Cardiovascular: reports: Chest Pain, Shortness of Breath Respiratory: reports: SOB, SOB on Exertion Gastrointestinal: reports: No Symptoms Genitourinary: reports: No Symptoms Breasts: reports: No Symptoms Reported Musculoskeletal: reports: No Symptoms Integumentary: reports: No Symptoms Neurological: reports: No Symptoms Endocrine: reports: No Symptoms Hematology/Lymphatic: reports: No Symptoms Psychiatric: reports: No Symptoms Vital Signs: Vital Signs Temperature 97.8 F 10/06/18 05:44 Pulse Rate 70 10/06/18 05:44 Respiratory Rate 20 10/06/18 05:44 Blood Pressure 124/57 L 10/06/18 05:44 O2 Sat by Pulse Oximetry (%) 98 10/06/18 02:33 Constitutional: Yes: Well Nourished, No Distress, Calm Eyes: Yes: WNL, Conjunctiva Clear, EOM Intact HENT: Yes: WNL, Atraumatic, Normocephalic Neck: Yes: WNL, Supple, Trachea Midline Respiratory: Yes: WNL, Regular, CTA Bilaterally Gastrointestinal: Yes: WNL, Normal Bowel Sounds Renal/: Yes: WNL Cardiovascular: Yes: WNL, Regular Rate and Rhythm Musculoskeletal: Yes: WNL Extremities: Yes: WNL Integumentary: Yes: WNL Neurological: Yes: WNL, Alert, Oriented ...Motor Strength: WNL Psychiatric: Yes: WNL, Alert, Oriented - Other Data Labs, Other Data: CBC, BMP 10/06/18 05:55 INR, PTT INR 1.39 (0.83-1.09) H 10/05/18 15:06 Troponin, BNP 10/05/18 10/06/18 15:06 01:00 Troponin I < 0.02 < 0.02 B-Natriuretic Peptide 1478.6 H Troponin, BNP 10/05/18 10/06/18 15:06 01:00 Troponin I < 0.02 < 0.02 B-Natriuretic Peptide 1478.6 H Imaging - Results Chest X-ray: Image Reviewed (cm chf) EKG: Image Reviewed (v paced) Problem List - Problems (1) A-fib Code(s): I48.91 - UNSPECIFIED ATRIAL FIBRILLATION (2) Acute renal failure Code(s): N17.9 - ACUTE KIDNEY FAILURE, UNSPECIFIED (3) Anemia Code(s): D64.9 - ANEMIA, UNSPECIFIED (4) Anxiety Code(s): F41.9 - ANXIETY DISORDER, UNSPECIFIED (5) Atypical chest pain Code(s): R07.89 - OTHER CHEST PAIN (6) CAD (coronary artery disease) Code(s): I25.10 - ATHSCL HEART DISEASE OF [place] CORONARY ARTERY W/O ANG PCTRS (7) Chest pain Code(s): R07.9 - CHEST PAIN, UNSPECIFIED (8) Chronic systolic (congestive) heart failure Code(s): I50.22 - CHRONIC SYSTOLIC (CONGESTIVE) HEART FAILURE (9) Congestive heart disease Code(s): I50.9 - HEART FAILURE, UNSPECIFIED (10) Ear pain, left Code(s): H92.02 - OTALGIA, LEFT EAR (11) HLD (hyperlipidemia) Code(s): E78.5 - HYPERLIPIDEMIA, UNSPECIFIED (12) HTN (hypertension) Code(s): I10 - ESSENTIAL (PRIMARY) HYPERTENSION (13) Hematuria Code(s): R31.9 - HEMATURIA, UNSPECIFIED (14) Hyperkalemia Code(s): E87.5 - HYPERKALEMIA (15) Hyperphosphatemia Code(s): E83.39 - OTHER DISORDERS OF PHOSPHORUS METABOLISM (16) Hypokalemia Code(s): E87.6 - HYPOKALEMIA (17) Hypomagnesemia Code(s): E83.42 - HYPOMAGNESEMIA (18) Hypotension Code(s): I95.9 - HYPOTENSION, UNSPECIFIED (19) ICD (implantable cardioverter-defibrillator) in place Code(s): Z95.810 - PRESENCE OF AUTOMATIC (IMPLANTABLE) CARDIAC DEFIBRILLATOR (20) Metabolic acidosis Code(s): E87.2 - ACIDOSIS (21) Polyuria Code(s): R35.8 - OTHER POLYURIA (22) Pre-syncope Code(s): R55 - SYNCOPE AND COLLAPSE (23) Syncope Code(s): R55 - SYNCOPE AND COLLAPSE (24) Total knee replacement status Code(s): Z96.659 - PRESENCE OF UNSPECIFIED ARTIFICIAL KNEE JOINT Assessment/Plan cardiomyopathy--> single chamber ICD placement ([employer]) placed 2014 at [facility]; HTN; Hyperlipidemia admitted with CHF exacerbation and atypical CP r/o mi neg Plan echo telemetry old records from [facility]? re prior w/u iv lasix old records re lack of AC for AF will f/u
[2018-10-06 08:39] LABS: INR 1.11 (0.83-1.09); PROTHROMBIN TIME (PATIENT) 13.1 SEC (9.7-13.0)
[2018-10-06] MEDS ORDERED: DEXTROSE 5%-WATER - 50 ML IVPB ONE (09:32)
[2018-10-06] MEDS ORDERED: cefTRIAXone SODIUM 1 GM VIAL ONE (09:32)
[2018-10-06] MEDS ORDERED: FUROSEMIDE 40 MG/4 ML INJECTABLE VIAL IVPUSH SCH (10:00)
[2018-10-06] MEDS: LISINOPRIL 5 MG TABLET (FP) PO SCH (10:29)
[2018-10-06] MEDS: CEFTRIAXONE 1 GM in DEXTROSE 5%-WATER - 50 ML IVPB SCH (10:29)
[2018-10-06] MEDS: ASPIRIN 81 MG CHEWABLE TABLETS PO SCH (10:29)
[2018-10-06] MEDS: RANITIDINE HCL 150 MG TABLET (FP) PO SCH ×2 (10:30→21:22)
--- NOTE | 2018-10-06 15:53 | ECHO ---
Name: VIKASH THOMAS Exam:Adult Echocardiogram Study Date: 10/06/2018 09:47 AM Age: 73 yrs Reason For Study: SOB Height: 61 in Weight: 189 lb BSA: 1.8 m2 MMode/2D Measurements & Calculations IVSd: 0.73 cm Ao root diam: 2.4 cm LVIDd: 5.0 cm LA dimension: 4.4 cm LVIDs: 3.7 cm LVPWd: 0.72 cm EDV(Teich): 119.7 ml LVOT diam: 2.1 cm ESV(Teich): 58.4 ml Doppler Measurements & Calculations MV E max jon: 75.0 cm/sec Ao V2 max: 124.1 cm/sec MV A max jon: 24.2 cm/sec Ao max P.2 mmHg MV E/A: 3.1 Ao V2 mean: 86.4 cm/sec Ao mean P.4 mmHg Ao V2 VTI: 24.0 cm EUSEBIA(I,D): 2.0 cm2 EUSEBIA(V,D): 2.2 cm2 LV V1 max P.6 mmHg MR max jon: 308.4 cm/sec LV V1 mean P.1 mmHg MR max P.2 mmHg LV V1 max: 81.4 cm/sec LV V1 mean: 45.2 cm/sec LV V1 VTI: 14.2 cm SV(LVOT): 48.5 ml TR max jon: 159.0 cm/sec TR max P.1 mmHg Med Peak E' Jon: 6.0 cm/sec Med E/e': 12.4 Lat Peak E' Jon: 5.3 cm/sec Lat E/e': 14.1 Procedure A complete two-dimensional transthoracic echocardiogram was performed (2D, M-mode, Doppler and color flow Doppler). Left Ventricle The left ventricular size, thickness and function are normal. The left ventricular ejection fraction is normal. Ejection Fraction = 55-60%. The left ventricular wall motion is normal. Right Ventricle The right ventricle is normal in size and function. There is a pacemaker lead in the right ventricle. Atria The left atrium is moderately dilated. There is a catheter/pacemaker lead seen in the right atrium. R ight atrial size is normal. Mitral Valve There is no mitral regurgitation noted. Tricuspid Valve There is trace tricuspid regurgitation. There was insufficient TR detected to calculate RV systolic p ressure. Aortic Valve No hemodynamically significant valvular aortic stenosis. No aortic regurgitation is present. Pulmonic Valve There is no pulmonic valvular regurgitation. Great Vessels The aortic root is normal size. Pericardium/Pleura There is no pericardial effusion. Interpretation Summary The left ventricular size, thickness and function are normal The right ventricle is normal in size and function. There is a pacemaker lead in the right ventricle and atrium. The left atrium is moderately dilated. There is trace tricuspid regurgitation. MD True Jacobo 10/06/2018 03:52 PM
--- NOTE | 2018-10-06 16:54 | PN ---
Teaching Attending Note Name of Resident: Karen Larson ATTENDING PHYSICIAN STATEMENT I saw and evaluated the patient. I reviewed the resident's note and discussed the case with the resident. I agree with the resident's findings and plan as documented. SUBJECTIVE: Ms Del Rosario says she is feeling better. Denies cp, sob, n/v. She complains of chronic dysuria OBJECTIVE: Last Vital Signs Temp Pulse Resp BP Pulse Ox 36.6 C 76 22 H 106/58 L 96 10/06/18 14:00 10/06/18 14:00 10/06/18 10:00 10/06/18 14:00 10/06/18 09:00 Gen: nad Pulm: ctab w/o w/r/r CV: rrr w/o m/r/g Abd: +bs, s/nt/nd Ext: no c/c/e CBC, BMP 10/06/18 05:55 10/06/18 05:55 ASSESSMENT AND PLAN: Problem List - Problems (1) Chest pain Assessment/Plan: -currently resolved -troponins x3 normal -cardiology following, to recommend further care Code(s): R07.9 - CHEST PAIN, UNSPECIFIED (2) Diastolic CHF Assessment/Plan: -slightly elevated BNP -continue IV lasix -improving Code(s): I50.30 - UNSPECIFIED DIASTOLIC (CONGESTIVE) HEART FAILURE Qualifiers: Heart failure chronicity: acute on chronic Qualified Code(s): I50.33 - Acute on chronic diastolic (congestive) heart failure (3) A-fib Assessment/Plan: -continue toprol xl and xarelto Code(s): I48.91 - UNSPECIFIED ATRIAL FIBRILLATION Qualifiers: Atrial fibrillation type: chronic Qualified Code(s): I48.2 - Chronic atrial fibrillation (4) HLD (hyperlipidemia) Assessment/Plan: -continue statin Code(s): E78.5 - HYPERLIPIDEMIA, UNSPECIFIED (5) HTN (hypertension) Assessment/Plan: -well controlled -continue current regimen Code(s): I10 - ESSENTIAL (PRIMARY) HYPERTENSION (6) UTI (urinary tract infection) Assessment/Plan: -last urine culture grew e coli -current culture pending -continue rocephin Code(s): N39.0 - URINARY TRACT INFECTION, SITE NOT SPECIFIED
[2018-10-06] MEDS ORDERED: RIVAROXABAN 20 MG TABLET PO SCH (18:00)
[2018-10-06 18:17] VITALS: PULSE 70
[2018-10-06] MEDS ORDERED: ATORVASTATIN CA 40 MG TABLET (FP) PO SCH (22:00)
[2018-10-07 05:55] VITALS: TEMP 97.6
[2018-10-07] MEDS: FUROSEMIDE 40 MG/4 ML INJECTABLE VIAL IVPUSH SCH (06:28)
[2018-10-07 07:18] LABS: BASO % 0.5 % (0-2.0); EOS % 1.5 % (0-4.5); HEMATOCRIT 37.3 % (32.4-45.2); HEMOGLOBIN 12.4 GM/dL (10.7-15.3); MCHC 33.2 g/dl (32.0-36.0); MEAN CELL VOLUME 87.3 fl (80-96); MEAN PLT VOLUME 7.1 fl (7.5-11.1); MONO % 6.4 % (3.8-10.2); NEUT % 70.6 % (42.8-82.8); PLATELET COUNT 407 K/MM3 (134-434); RBC 4.27 M/mm3 (3.60-5.2); RDW 13.7 % (11.6-15.6); WHITE BLOOD COUNT 7.7 K/mm3 (4.0-10.0)
[2018-10-07 08:01] LABS: ALBUMIN 3.2 g/dl (3.4-5.0); BILIRUBIN,TOTAL 0.3 mg/dL (0.2-1); BLOOD UREA NITROGEN 18.9 mg/dL (7-18); CALCIUM 8.8 mg/dL (8.5-10.1); CREATININE 0.9 mg/dL (0.55-1.3); MAGNESIUM 2.3 mg/dL (1.8-2.4); PHOSPHOROUS 3.9 mg/dL (2.5-4.9); POTASSIUM 4.3 mmol/L (3.5-5.1)
[2018-10-07] MEDS ORDERED: cefTRIAXone SODIUM 1 GM VIAL ONE (10:54)
[2018-10-07] MEDS ORDERED: DEXTROSE 5%-WATER - 50 ML IVPB ONE (10:54)
[2018-10-07] MEDS: ASPIRIN 81 MG CHEWABLE TABLETS PO SCH (10:59)
[2018-10-07] MEDS: RANITIDINE HCL 150 MG TABLET (FP) PO SCH (10:59)
[2018-10-07] MEDS: LISINOPRIL 5 MG TABLET (FP) PO SCH (10:59)
[2018-10-07] MEDS: CEFTRIAXONE 1 GM in DEXTROSE 5%-WATER - 50 ML IVPB SCH (11:04)
[2018-10-07 11:06] VITALS: BP 116/72
--- NOTE | 2018-10-07 11:22 | PN ---
Progress Note, Physician History of Present Illness: Ms. Del Rosario is a 73yo female with systolic CHF, CAD, HTN, a-fib, pacemaker, and HTN who presents with chest pain x 3 days. She is unable to describe the pain but it is in the epigastric area and can be 8/10 pain. She is experiencing increased SOB and ALDRICH recently as well. She is able to walk half a block before becoming winded. She also has recent orthopnea, sleeping with 2 pillows instead of 1 now. She denies wheezing. She also reports sore throat, throat swelling, left ear pain/hearing loss. She moved to a new home 7 months ago and attributes new and worsening symptoms to insects and pesticide used by [employer] She denies n/v/d. PMH PM history cardiomyopathy--> single chamber ICD placement ([employer]) placed 03/21/2015 at [facility]; HTN; Hyperlipidemia; - Current Medication List Current Medications: Active Medications Aspirin (Asa -) 81 mg PO DAILY [facility] Last Admin: 10/07/18 10:59 Dose: 81 mg Atorvastatin Calcium (Lipitor -) 40 mg PO HS [facility] Last Admin: 10/06/18 21:22 Dose: 40 mg Furosemide (Lasix Injection -) 40 mg IVPUSH BID@0600,1400 [facility] Last Admin: 10/07/18 06:28 Dose: 40 mg Ceftriaxone Sodium 1 gm/ (Dextrose) 50 mls @ 100 mls/hr IVPB DAILY [facility]; Protocol Stop: 10/09/18 23:59 Last Admin: 10/07/18 11:04 Dose: Not Given Lisinopril (Prinivil) 5 mg PO DAILY [facility] Last Admin: 10/07/18 10:59 Dose: 5 mg Metoprolol Succinate (Toprol Xl -) 200 mg PO DAILY [facility] Last Admin: 10/07/18 10:58 Dose: 200 mg Ranitidine HCl (Zantac -) 150 mg PO BID [facility] Last Admin: 10/07/18 10:59 Dose: 150 mg Rivaroxaban (Xarelto) 20 mg PO DAILY@1800 [facility] Last Admin: 10/06/18 17:49 Dose: 20 mg - Objective Vital Signs: Vital Signs Temperature 97.6 F 10/07/18 05:30 Pulse Rate 70 10/07/18 11:00 Respiratory Rate 20 10/07/18 11:00 Blood Pressure 116/72 10/07/18 11:00 O2 Sat by Pulse Oximetry (%) 98 10/06/18 20:29 Eyes: Yes: WNL, Conjunctiva Clear, EOM Intact HENT: Yes: WNL, Atraumatic, Normocephalic Neck: Yes: WNL, Supple, Trachea Midline Cardiovascular: Yes: WNL, Regular Rate and Rhythm Respiratory: Yes: WNL, Regular, CTA Bilaterally Gastrointestinal: Yes: WNL, Normal Bowel Sounds Genitourinary: Yes: WNL Musculoskeletal: Yes: WNL Extremities: Yes: WNL Edema: No Integumentary: Yes: WNL Neurological: Yes: WNL, Alert, Oriented ...Motor Strength: WNL Psychiatric: Yes: WNL Labs: CBC, BMP 10/07/18 06:15 10/07/18 06:15 INR, PTT INR 1.11 (0.83-1.09) H 10/06/18 05:55 Problem List - Problems (1) A-fib Code(s): I48.91 - UNSPECIFIED ATRIAL FIBRILLATION Qualifiers: Atrial fibrillation type: chronic Qualified Code(s): I48.2 - Chronic atrial fibrillation (2) Acute renal failure Code(s): N17.9 - ACUTE KIDNEY FAILURE, UNSPECIFIED (3) Anemia Code(s): D64.9 - ANEMIA, UNSPECIFIED (4) Anxiety Code(s): F41.9 - ANXIETY DISORDER, UNSPECIFIED (5) Atypical chest pain Code(s): R07.89 - OTHER CHEST PAIN (6) CAD (coronary artery disease) Code(s): I25.10 - ATHSCL HEART DISEASE OF [place] CORONARY ARTERY W/O ANG PCTRS (7) Chest pain Code(s): R07.9 - CHEST PAIN, UNSPECIFIED (8) Chronic systolic (congestive) heart failure Code(s): I50.22 - CHRONIC SYSTOLIC (CONGESTIVE) HEART FAILURE (9) Congestive heart disease Code(s): I50.9 - HEART FAILURE, UNSPECIFIED (10) Ear pain, left Code(s): H92.02 - OTALGIA, LEFT EAR (11) HLD (hyperlipidemia) Code(s): E78.5 - HYPERLIPIDEMIA, UNSPECIFIED (12) HTN (hypertension) Code(s): I10 - ESSENTIAL (PRIMARY) HYPERTENSION (13) Hematuria Code(s): R31.9 - HEMATURIA, UNSPECIFIED (14) Hyperkalemia Code(s): E87.5 - HYPERKALEMIA (15) Hyperphosphatemia Code(s): E83.39 - OTHER DISORDERS OF PHOSPHORUS METABOLISM (16) Hypokalemia Code(s): E87.6 - HYPOKALEMIA (17) Hypomagnesemia Code(s): E83.42 - HYPOMAGNESEMIA (18) Hypotension Code(s): I95.9 - HYPOTENSION, UNSPECIFIED (19) ICD (implantable cardioverter-defibrillator) in place Code(s): Z95.810 - PRESENCE OF AUTOMATIC (IMPLANTABLE) CARDIAC DEFIBRILLATOR (20) Metabolic acidosis Code(s): E87.2 - ACIDOSIS (21) Polyuria Code(s): R35.8 - OTHER POLYURIA (22) Pre-syncope Code(s): R55 - SYNCOPE AND COLLAPSE (23) Syncope Code(s): R55 - SYNCOPE AND COLLAPSE (24) Total knee replacement status Code(s): Z96.659 - PRESENCE OF UNSPECIFIED ARTIFICIAL KNEE JOINT Assessment/Plan cardiomyopathy--> single chamber ICD placement ([employer]) placed 2014 at [facility]; HTN; Hyperlipidemia admitted with CHF exacerbation and atypical CP r/o mi neg Plan echo telemetry old records from [facility]? re prior w/u iv lasix old records re lack of AC for AF will f/u
--- NOTE | 2018-10-07 12:46 | DS ---
Physical Exam: SUBJECTIVE: Patient seen and examined, agitating to leave AMA due to issues with her housing. Pt reports no chest pain now, thinks it was related to anxiety due to increased stress. Reports she still has dysuria. Pt insists that she follows up at [facility] and can always go there with heart complaints. I informed her about pending sensitivities for the ucx and informed her about risks of leaving including worsening infection, sepsis and . OBJECTIVE: Vital Signs Period Temp Pulse Resp BP Sys/[place] Pulse Ox Last 24 Hr 97.6 F-98.9 F 70-76 20-20 102-122/51-72 98 PHYSICAL EXAM GENERAL: The patient is awake, alert, and fully oriented, agitated to leave LUNGS: Breath sounds equal, clear to auscultation bilaterally, HEART: Regular rate and rhythm, S1, S2 ABDOMEN: Soft, nondistended, normoactive bowel sounds EXTREMITIES: 2+ pulses, warm, well-perfused, no edema. NEUROLOGICAL: Cranial nerves II through XII grossly intact. Normal speech, gait not observed. PSYCH: Agitated/anxious/teary LABS Laboratory Results - last 24 hr 10/06/18 10/07/18 10/07/18 12:25 06:06 06:15 WBC 7.7 RBC 4.27 Hgb 12.4 Hct 37.3 MCV 87.3 MCH 29.0 MCHC 33.2 RDW 13.7 Plt Count 407 MPV 7.1 L Absolute Neuts (auto) 5.4 Neutrophils % 70.6 Lymphocytes % 21.0 Monocytes % 6.4 Eosinophils % 1.5 Basophils % 0.5 Nucleated RBC % 0 Sodium Potassium Chloride Carbon Dioxide Anion Gap BUN Creatinine Est GFR (CKD-EPI)AfAm Est GFR (CKD-EPI)NonAf POC Glucometer 95 Random Glucose Calcium Phosphorus Magnesium Total Bilirubin AST ALT Alkaline Phosphatase Troponin I < 0.02 Total Protein Albumin Digoxin 10/07/18 06:15 WBC RBC Hgb Hct MCV MCH MCHC RDW Plt Count MPV Absolute Neuts (auto) Neutrophils % Lymphocytes % Monocytes % Eosinophils % Basophils % Nucleated RBC % Sodium 143 Potassium 4.3 Chloride 104 Carbon Dioxide 34 H Anion Gap 5 L BUN 18.9 H Creatinine 0.9 Est GFR (CKD-EPI)AfAm 72.49 Est GFR (CKD-EPI)NonAf 62.55 POC Glucometer Random Glucose 96 Calcium 8.8 Phosphorus 3.9 Magnesium 2.3 Total Bilirubin 0.3 AST 14 L ALT 24 Alkaline Phosphatase 124 H Troponin I Total Protein 7.0 Albumin 3.2 L Digoxin 0.52 L Microbiology 10/05/18 16:00 Urine - Urine Clean Catch Urine Culture - Final Escherichia Coli ECHO 03/2015: LV mildly dilated, LVSF mod reduced. Mod. global hypokinesis of LV. Apical wall motion abnl., may reflect pacemaker activation. Pacemaker lead in RV. RV not well visualized. LA?RA mod dilated Mild MR/TR. Normal RVSP. ECHO 10/06/18:EF 55-60%, nl LV size, thickness and function. RV-size, and function. Pacemaker lead in RV and LA. LA moderately dilated. Trace TR HOSPITAL COURSE: Date of Admission:10/05/18 Date of Discharge: 10/07/18 Pt is a 73yo female with systolic CHF, CAD, HTN, a-fib, pacemaker, and HTN who presents with chest pain x 3 days. Pt was found to have UTI and admitted to [facility]. Pt was diuresed with iv lasix 40mg bid, had neg trops x2 with resolution of chest pain. Pt was seen by cardiology. She was nitrite positive, placed on ceftriaxone with pending sensitivities prior to patient signing out AMA due to housing issues. Pt was advised of the risks of signing against medical advice including an [facility], sepsis and eventual . She expressed understanding the risks and still decided to leave. Minutes to complete discharge: 40 Discharge Summary Reason For Visit: UTI Condition: Stable - Instructions Disposition: AGAINST MEDICAL ADVICE - Home Medications Comprehensive Discharge Medication List: Ambulatory Orders Aspirin [Machelle Chewable Aspirin] 81 mg PO DAILY 04/03/15 Atorvastatin Calcium 40 mg PO DAILY 04/03/15 Digoxin [Lanoxin -] 0.125 mg PO DAILY 04/03/15 Docusate Sodium 100 mg PO DAILY 04/03/15 Duloxetine HCl 60 mg PO DAILY 04/03/15 Gabapentin [Neurontin -] 300 mg PO Q8H 04/03/15 Ipratropium Sharon [Atrovent Hfa] 12.9 gm IH QID PRN 04/03/15 Metoprolol Succinate [Toprol XL -] 200 mg PO DAILY 04/03/15 Sertraline HCl 50 mg PO DAILY 04/03/15 Torsemide 20 mg PO DAILY 04/03/15 Zolpidem Tartrate [Ambien] 5 mg PO HS PRN 04/03/15 Lisinopril [Prinivil] 5 mg PO DAILY #30 tablet 04/09/15 Magnesium Oxide [Mag-Ox -] 400 mg PO DAILY #30 tablet 04/09/15 Warfarin Na [Coumadin -] 5 mg PO DAILY@1800 #30 tablet 04/09/15 This patient is new to me today: No Emergency Visit: Yes ED Registration Date: 10/05/18 Care time: The patient presented to the Emergency Department on the above date and was hospitalized for further evaluation of their emergent condition. Critical Care patient: No - Discharge Referral Referred to [facility] Med P.C.: No ATTENDING PHYSICIAN STATEMENT I saw and evaluated the patient. I reviewed the resident's note and discussed the case with the resident. I agree with the resident's findings and plan as documented. SUBJECTIVE: OBJECTIVE: ASSESSMENT AND PLAN:
== END 2018-10-07 11:36 | disposition left against medical advice (07) | DRG 291 ==
LOC: JER 13:33 → JERBED 18:01 → OBSVTOIN 20:14 → J4W 10-06 01:37
PROVIDERS: ADMIT Internal Medicine; ATTEND Internal Medicine
DX: I11.0 Hypertensive heart disease with heart failure (principal); I50.21 Acute systolic (congestive) heart failure; N39.0 Urinary tract infection, site not specified; K51.90 Ulcerative colitis, unspecified, without complications; I25.10 Atherosclerotic heart disease of native coronary artery without angina pectoris; E78.5 Hyperlipidemia, unspecified; I42.0 Dilated cardiomyopathy; K44.9 Diaphragmatic hernia without obstruction or gangrene; E66.9 Obesity, unspecified; Z68.32 Body mass index [BMI] 32.0-32.9, adult; K21.9 Gastro-esophageal reflux disease without esophagitis; F41.9 Anxiety disorder, unspecified; N13.9 Obstructive and reflux uropathy, unspecified; G89.29 Other chronic pain; I48.2 Chronic atrial fibrillation; D64.9 Anemia, unspecified; Z95.0 Presence of cardiac pacemaker
CPT/HCPCS: 36415; 71045-TC-FY; 71046-TC-FY; 80053; 80162; 81003; 82962; 83735; 83880; 84100; 84484; 85025; 85610; 85730; 87086; 87186; 93005; 93010; 93306-TC; 99285-25; G0378